=== PATIENT | female | born 1975 | race Caucasian/White ===

== ENCOUNTER → 2023-05-06 07:53 | Outpatient (CLI) | payer OTHER, SELFPAY ==
--- NOTE | 2023-05-06 07:57 | DI.MRI.S_ITS ---
PROCEDURE: MR LUMBAR SPINE WO CON INDICATIONS: PROTRUSION OF LUMBAR DISC/ACUTE R SIDED LBP TECHNIQUE: Noncontrast sagittal T1 spin echo and T2 fast echo, sagittal STIR, and T2 fast spin echo through the lumbar spine. In cases with scoliosis, additional coronal T2 fast spin echo may be performed. COMPARISON: None. FINDINGS: Image quality: Excellent. Alignment and Curvature: Straightening and mild reversal of the normal lumbar lordosis centered at L2-L3. Bone Marrow: Marrow is of normal overall signal. No acute vertebral body compression fractures. Spinal Cord: Conus medullaris terminates at the L1 level. Visualized cord demonstrates normal signal and size. Paraspinous Soft Tissues: No paravertebral masses. T12-L1: Normal appearance. L1-L2: Mild disc desiccation. No central canal or neural foraminal stenosis. L2-L3: Disc desiccation and height loss. Minimal disc bulge. Facet arthropathy. No central canal or neural foraminal stenosis. L3-L4: Disc desiccation and mild height loss. Mild disc bulge. Facet arthropathy. No central canal or neural foraminal stenosis. L4-L5: Disc desiccation. Diffuse disc bulge with superimposed right paracentral disc protrusion extending inferiorly resulting in severe narrowing of the right lateral recess with impingement of the descending right L5 nerve root. There is moderate central canal stenosis. Facet arthropathy. Mild right neural foraminal stenosis. No left neural foraminal stenosis. L5-S1: Disc desiccation height loss. Posterior disc bulge. Facet arthropathy. No central canal or neural foraminal stenosis. IMPRESSION: 1. Multilevel degenerative changes of the lumbar spine as described above. 2. At L4-5, there is a right paracentral disc extrusion extending inferiorly resulting in severe narrowing of the right lateral recess with impingement of the descending right L5 nerve root as well as moderate central canal stenosis. Dictated by: Bimal Avila M.D. on 05/06/2023 at 10:07 Approved by: Bimal Avila M.D. on 05/06/2023 at 10:11
== END ==
PROVIDERS: PCP Family Medicine; Referring Provider Family Medicine; Visit Provider Family Medicine
DX: M51.26 Other intervertebral disc displacement, lumbar region (principal); M54.41 Lumbago with sciatica, right side; M48.061 Spinal stenosis, lumbar region without neurogenic claudication
CPT/HCPCS: 72148